=== PATIENT | female | born 1995 | race Caucasian/White ===

== ENCOUNTER → 2022-09-22 13:25 | Outpatient (BNVA) | payer OTHER, SELFPAY | PROVIDERS: Family Provider Family Medicine; Visit Provider Emergency Medicine | DX: J02.9 Acute pharyngitis, unspecified (principal) | CPT/HCPCS: 87071; 87400; 87880 ==

== ENCOUNTER → 2023-03-01 13:06 | Outpatient (BNVA) | payer OTHER, SELFPAY | PROVIDERS: Family Provider Family Medicine; Visit Provider Family Medicine | DX: J02.9 Acute pharyngitis, unspecified (principal) | CPT/HCPCS: 87071; 87880 ==

== ENCOUNTER 2024-09-22 14:16 | Outpatient (CLI) | payer OTHER, SELFPAY ==
--- NOTE | 2024-09-22 14:30 | MR_ITS ---
WS: [id number] MRI LUMBAR SPINE NONCONTRAST HISTORY: M54.9 - Dorsalgia, unspecified, RIGHT leg pain. COMPARISON: None available. TECHNIQUE: Sagittal and axial multisequence imaging is submitted. Normal lumbar alignment with no compression fractures or marrow edema. Disc spaces are slightly desiccated at L3-4, L4-5 and L5-S1. Conus terminates normally at L1-2 disc level. L1-L2: Normal. L2-L3: Mild bilateral ligamentum flavum and facet arthropathy. No significant stenosis. L3-L4: Mild annular disc bulge with a moderate size central disc protrusion encroaching upon the thec al sac and subarticular recesses. Disc does contact the traversing L4 nerve roots, RIGHT greater than LEFT. Mild bilateral facet joint arthropathy. Mild subarticular recess and foraminal stenosis. L4-L5: Diffuse annular disc bulge with a moderate disc protrusion. Disc protrusion contacts the trave rsing L5 nerve roots. Mild central encroachment. No significant foraminal stenosis. L5-S1: Mild disc bulging with a central disc protrusion. Bilateral facet joint arthropathy. Mild LEFT foraminal stenosis. Paravertebral soft tissues are normal. MR/MR lumbar spine wo con* [id number] IMPRESSION: 1. Mild disc desiccation at L3-4, L4 and L5-S1. 2. L4-5: Moderate central disc protrusion contacts the traversing L5 nerve sandra ts. Mild central and subarticular recess encroachment. 3. L3-4: Moderate central disc protrusion encroaches upon the thecal sac and s ubarticular recess. Disc contacts the traversing L4 nerve roots, RIGHT greater than LEFT. Mild subarticular recess and foraminal stenosis.
== END 2024-09-22 14:17 | disposition home or self-care (01) ==
LOC: RAD 14:16
PROVIDERS: Family Provider Family Medicine; Visit Provider Nurse Practitioner Family
DX: M51.24 Other intervertebral disc displacement, thoracic region (principal); R20.0 Anesthesia of skin
CPT/HCPCS: 72148

== ENCOUNTER → 2024-10-04 16:03 | Outpatient (BNVA) | payer OTHER, SELFPAY | PROVIDERS: Family Provider Family Medicine; Visit Provider Nurse Practitioner | DX: R53.83 Other fatigue | CPT/HCPCS: 80053; 80061; 83036; 84443; 85025 ==